=== PATIENT | male | born 2000 | race Caucasian/White ===

== ENCOUNTER 2021-01-21 12:55 | Emergency (ER) | payer BC, SELFPAY ==
[2021-01-21 13:04] VITALS: BP 109/64; PULSE 89; RESP 16; TEMP 36.6; O2SAT 100
--- NOTE | 2021-01-21 13:25 | ED.MALEGU ---
HPI - Male Genitourinary General Chief complaint: Urogenital-Male Stated complaint: POS UTI Time Seen by Provider: 01/21/21 13:18 Source: patient, RN notes reviewed and old records reviewed Mode of arrival: ambulatory Limitations: no limitations History of Present Illness HPI Narrative: 20 year old male who presents to [facility] care with complaints of penile drainage and urinary burning for the past 10 days. Patient does admit to having unprotected sexual intercourse prior to symptoms starting. Patient was treated in September of this year also for STDs he states. Patient denies any visible hematuria, denies any suprapubic tenderness or any CVA tenderness, no fevers chills or sweats or any other ill symptoms MD Complaint: penile discharge and other (itching) Onset (ago): day(s) (10) Location: penis Related Data Allergies Allergy/AdvReac Type Severity Reaction Status Date / Time No Known Allergies Allergy Verified 05/17/19 16:28 Review of Systems Review of Systems: CONSTITUTIONAL: Denies fever, chills, or sweats. EYES: Denies visual changes, redness, or discharge. ENT: Denies rhinorrhea, congestion, sore throat, or otalgia. CARDIOVASCULAR: Denies chest pain, palpitations, or edema. RESPIRATORY: Denies cough or dyspnea. GASTROINTESTINAL: Denies abdominal pain, nausea, vomiting, or diarrhea. GENITOURINARY: Positive dysuria no hematuria, penile drainage with some itching SKIN: Denies rash or itching. MUSCULOSKELETAL: Denies back pain, joint pain, or myalgia. NEUROLOGIC: Denies headache, numbness, or weakness. PSYCHIATRIC: Denies anxiety or depression. All systems reviewed & are unremarkable except as noted in HPI and below PMFSH Past Medical History Medical History (Updated 01/22/21 @ 00:01 by Mechelle Gautam) Healthy adolescent STD (male) Surgical History Surgical History No history of previous surgery Family History Family History (Updated 01/21/21 @ 14:07 by Lisa Bell NP) Grandparent Cancer of jaw Social History Social History (Updated 01/21/21 @ 14:07 by Lisa Bell NP) Tobacco type: e-cigarettes/vaping Alcohol intake: current Alcohol use details: social Substance use: never Living arrangements: with family Gender identity (if verbalized by the patient): Male Comments At time of signature, agree with nursing past medical, surgical, social and family history. There is no relevant family history pertinent to the presenting complaint Exam Narrative: GENERAL: Well-appearing, well-nourished, and in no acute distress. HEAD: Normocephalic, atraumatic. EYES: PERRLA and EOMI. ENT: Nares clear, no rhinorrhea or epistaxis. Mucous membranes moist. NECK: Supple.no lymphadenopathy CHEST: Clear to auscultation. No respiratory distress.SAO2 100% on room air HEART: Regular rate and rhythm. No murmur heard. Normal peripheral pulses. ABDOMEN: Soft, nontender, nondistended, normal active bowel sounds.No CVA tenderness on examination, reports of white penile discharge with burning with urination, unprotected intercourse. EXTREMITIES: Normal range of motion. No edema. SKIN: Warm, dry, no rash. NEURO: No focal deficits. Alert and oriented x3. Course Vital Signs Vital signs: Vital Signs Temperature 36.6 C 01/21/21 13:04 Pulse Rate 89 01/21/21 13:04 Respiratory Rate 16 01/21/21 13:04 Blood Pressure 109/64 01/21/21 13:04 Pulse Oximetry 100 01/21/21 13:04 Temperature 36.6 C 01/21/21 13:04 Pulse Rate 89 01/21/21 13:04 Respiratory Rate 16 01/21/21 13:04 Blood Pressure 109/64 01/21/21 13:04 Pulse Oximetry 100 01/21/21 13:04 MDM - Male Genitourinary MDM Narrative Medical decision making narrative: Patient medicated with Rocephin one gram IM while in clinic with no reaction noted. RX sent to pharmacy for doxycycline and Flagyl Differential Diagnosis Differential diagnosis: Likely urinary tract infection
[2021-01-21] MEDS: LIDOCAINE HCL 1% LOCAL INJ 20 ML VIAL 2.1 ML IM (13:46)
[2021-01-21] MEDS: cefTRIAXone 1 GM VIAL IM (13:46)
== END 2021-01-21 14:10 | disposition home or self-care (01) ==
PROVIDERS: Emergency Provider Registered Nurse; PCP Family Medicine Adolescent Medicine
DX: A64 Unspecified sexually transmitted disease (principal)
CPT/HCPCS: 81003; 87491; 87591; 87661; 96372; 99213; G0463; J0696

== ENCOUNTER → 2021-05-27 01:43 | Outpatient (CLI) | payer SELFPAY ==
[2021-05-27 19:33] LABS: SARS-CoV-2 RNA PCR Negative
== END ==
PROVIDERS: PCP Family Medicine Adolescent Medicine; Visit Provider Family Medicine Adolescent Medicine
DX: R05.9 Cough, unspecified (principal); Z20.822 Contact with and (suspected) exposure to COVID-19
CPT/HCPCS: C9803; U0003; U0005

== ENCOUNTER 2022-03-26 02:25 | Emergency (ER) | payer SELFPAY ==
--- NOTE | ~2022-03-26 | XR_ITS ---
XR shoulder RT min 2V 03/26/2022 02:42 Indication: Right shoulder pain after fall Procedure: 4 views right shoulder Comparison: No prior studies for comparison. Findings: There is an acute minimally displaced oblique distal clavicular fracture. Acromioclavicular joint and glenohumeral joint are in anatomic alignment. Visualized lung parenchyma is unremarkable. Impression: 1: Acute minimally displaced right distal clavicular fracture. Reviewed, dictated and finalized at location A. Impression: 1: Acute minimally displaced right distal clavicular fracture.
--- NOTE | ~2022-03-26 | XR_ITS ---
EXAMINATION: XR chest 1V portable 03/26/2022 02:42 INDICATION: Status post fall. Chest and shoulder pain. PROCEDURE: PA view of the chest COMPARISON: 05/10/2019 FINDINGS: The lungs are clear. The cardiomediastinal silhouette is within normal limits. There are no pleural effusions. There is no pneumothorax suspected. There is an oblique distal clavicular fra cture. Acromioclavicular joint and anatomic alignment. IMPRESSION: 1: No acute cardiopulmonary disease. 2: Acute distal right clavicular fracture. Reviewed, dictated and finalized at location A.
[2022-03-26 02:29] VITALS: BP 131/68; PULSE 72; RESP 20; TEMP 36.6; O2SAT 98
--- NOTE | 2022-03-26 02:46 | ED.GENADULT ---
HPI - General Adult General Chief complaint: Alcohol Stated complaint: RIGHT SHOULDER PAIN Time Seen by Provider: 03/26/22 02:29 Source: patient and RN notes reviewed Mode of arrival: ambulatory Limitations: no limitations History of Present Illness complaint: right shoulder pain x this early am, after a fall. pt was drinking Etoh an Onset (ago): minute(s) (30) Location: upper extremity Severity: mild Severity scale (1-10): 3 Quality: aching Pain Consistency: constant Relieving factors: immobilization Exacerbating factors: movement Associated symptoms: denies other symptoms Treatments prior to arrival: none Related Data Allergies Allergy/AdvReac Type Severity Reaction Status Date / Time No Known Allergies Allergy Verified 05/17/19 16:28 Review of Systems Review of Systems: All systems reviewed & are unremarkable except as noted in HPI and below Constitutional: Constitutional: Reports no additional constitutional complaints Eyes: Eyes: Reports no additional eye complaints ENT: Reports system reviewed and no additional complaints, except as documented Cardiovascular: Cardiovascular: Reports no additional cardiovascular complaints Respiratory: Respiratory: Reports no additional respiratory complaints Gastrointestinal: Gastrointestinal: Reports no additional gastrointestinal complaints Musculoskeletal: Musculoskeletal: Reports arthralgias Integumentary/Breasts: Skin/Breast: Reports system reviewed and no additional complaints, except as docu Neurologic: Reports system reviewed and no additional complaints, except as documented Psychiatric: Psychiatric: Reports no additional psychiatric complaints Endocrine: Endocrine: Reports no additional endocrine complaints Hematologic/Lymphatic: Hematologic/Lymphatic: Reports no additional hematologic/lymphatic complaints Allergic/Immunologic: Allergic/Immunologic: Reports no additional allergic/immunologic complaints PMFSH Past Medical History Medical History Closed right clavicular fracture Healthy adolescent STD (male) Surgical History Surgical History No history of previous surgery Family History Family History Grandparent Cancer of jaw Social History Social History Tobacco type: e-cigarettes/vaping Alcohol intake: current Alcohol use details: social Substance use: never Gender identity (if verbalized by the patient): Male Exam Const: General: healthy appearing, no acute distress and well nourished Nutritional Appearance: well nourished Orientation/consciousness: patient oriented x3 Limitations: no limitations HENMT: Head: normal to inspection Ears: external ears normal, TM's normal bilaterally and EAC's normal Face/Nose/Sinus: Normal external nose present, Normal nares present, normal facial exam and sinuses nontender Face and sinus: normal facial exam and sinuses nontender Mouth: Yes Normal oral and palatal mucosa present and Yes moist mucous membranes Teeth and gingiva: dentition normal Throat: posterior oropharynx normal Eyes: Conjunctivae: conjunctivae normal Pupils: Equal, round and reactive pupils present EOM: EOMs intact bilaterally Neck: Neck: normal visual inspection, no lymphadenopathy and no meningeal signs Chest: Chest palpation & inspection: normal inspection of the chest Resp: Effort & Inspection: normal respiratory effort Auscultation: clear to auscultation bilaterally Cardio: Rate: regular rate Rhythm: regular rhythm GI: GI Palp: Yes Soft to palpation and No Tenderness to palpation present (GI) Auscultation: normal bowel sounds : General: Yes bladder normal to palpation and Yes no CVA tenderness Back/Spine/Pelvis: Back: no CVA tenderness Skin: General skin exam: normal color Rash
--- NOTE | 2022-03-26 02:51 | PC.NURSE ---
clavical splint applied instead of sling per MD verbal order. Nail beds christa good, good pulse post application
[2022-03-26 03:08] VITALS: BP 130/66; PULSE 70; RESP 18; TEMP 36.6; O2SAT 95
== END 2022-03-26 03:09 | disposition home or self-care (01) ==
PROVIDERS: Emergency Provider Emergency Medicine; PCP Family Medicine Adolescent Medicine
DX: S42.001A Fracture of unspecified part of right clavicle, initial encounter for closed fracture (principal)
CPT/HCPCS: 71045; 73030; 99284

== ENCOUNTER 2023-10-17 09:43 | Emergency (ER) | payer BC, SELFPAY ==
--- NOTE | 2023-10-17 09:52 | ED.GENADULT ---
HPI - General Adult General Chief complaint: Upper Respiratory Infection Stated complaint: SORE THROAT Source: patient, RN notes reviewed and old records reviewed Mode of arrival: ambulatory Limitations: no limitations History of Present Illness HPI narrative: 23-year-old male patient presents to [facility] with complaints of sore throat, bilateral ear pressure, pain in outer neck that started on Monday. Patient taking [id number] medications with no relief. Patient denies cough, congestion, chest pain, shortness of breath. Related Data Allergies Allergy/AdvReac Type Severity Reaction Status Date / Time No Known Allergies Allergy Verified 10/17/23 10:05 Review of Systems Constitutional: Constitutional: Reports no additional constitutional complaints, Denies body ache(s), Denies chills, Denies fatigue, Denies fever(s) and Denies headache(s) Eyes: Eyes: Reports no additional eye complaints and Denies blurry vision ENT: Reports system reviewed and no additional complaints, except as documented, Denies vertigo, Denies dizziness, Denies ear discharge, Reports otalgia, Denies facial pain, Denies headache(s), Denies nasal congestion, Denies nasal discharge, Denies sinus pain, Denies sinus pressure and Reports sore throat Cardiovascular: Cardiovascular: Reports no additional cardiovascular complaints, Denies chest pain, Denies chest pain at rest, Denies rapid heart rate and Denies dyspnea Respiratory: Respiratory: Reports no additional respiratory complaints, Denies chest congestion, Denies cough, Denies pain on inspiration, Denies pain with cough and Denies dyspnea Gastrointestinal: Gastrointestinal: Denies abdominal pain, Denies diarrhea, Denies nausea and Denies vomiting Integumentary/Breasts: Skin/Breast: Denies rash Neurologic: Reports system reviewed and no additional complaints, except as documented, Denies vertigo, Denies dizziness and Denies headache(s) Endocrine: Endocrine: Denies fatigue PMFSH Past Medical History Medical History Closed right clavicular fracture Healthy adolescent STD (male) Surgical History Surgical History No history of previous surgery Family History Family History Grandparent Cancer of jaw Social History Social History Tobacco type: e-cigarettes/vaping Alcohol intake: current Alcohol use details: social Substance use: never Living arrangements: with family Gender identity (if verbalized by the patient): Male Comments At the time of my signature, I reviewed and agree with the nursing past medical, surgical, social, and family history. There is no relevant family history pertinent to the patient complaint. Exam Const: General: cooperative, healthy appearing, no acute distress and well nourished Nutritional Appearance: well nourished Orientation/consciousness: patient oriented x3 Limitations: no limitations HENMT: Head: normal to inspection and normocephalic Ears: external ears normal, TM's normal bilaterally, EAC's normal and mastoids normal Face/Nose/Sinus: Normal nasal mucous membranes and turbinates present, normal facial exam and sinuses nontender Face and sinus: normal facial exam Mouth: Yes Normal oral and palatal mucosa present, Yes oropharynx normal and Yes moist mucous membranes Throat: tonsils normal, uvula midline, abnormal tonsil bilateral hypertrophy ( Left 3+, right 1+), no peritonsillar masses, posterior oropharynx abnormal erythema and exudates, no postnasal drainage and no uvular edema Eyes: General: appearance normal, both eyes and all related structures Sclera: sclerae normal Pupils: Equal, round and reactive pupils present Neck: Neck: lymphadenopathy ( cervical) Resp: Effort & Inspection: normal respiratory effort, ab
[2023-10-17 10:00] VITALS: BP 114/82; PULSE 102; RESP 16; TEMP 36.7; O2SAT 98
== END 2023-10-17 10:08 | disposition home or self-care (01) ==
PROVIDERS: Emergency Provider Registered Nurse; PCP Family Medicine Adolescent Medicine
DX: J02.0 Streptococcal pharyngitis (principal); F17.290 Nicotine dependence, other tobacco product, uncomplicated
CPT/HCPCS: 87880; 99213; G0463